=== PATIENT | male | born 2000 | race Caucasian/White ===

== ENCOUNTER 2022-05-06 11:23 | Inpatient (IN) ==
[2022-05-06 12:03] LABS: Basophils # (auto) 0.03 K/uL (0-0.2); Basophils % (auto) 0.4 %; Eosinophils # (auto) 0.06 K/uL (0-0.50); Eosinophils % (auto) 0.7 %; Hematocrit (blood only) 44.9 % (40.1-51.0); Hemoglobin 15.7 g/dl (14.0-18.0); Immature Granulocytes # (auto) 0.04 K/uL (0.00-0.02); Immature Granulocytes % (auto) 0.5 %; Lymphocytes # (auto) 1.16 K/uL (1.2-3.4); Lymphocytes % (auto) 13.8 %; Mean Corpuscular Hemoglobin 28.2 pg (25.0-34.0); Mean Corpuscular Volume 80.6 fL (80.0-100.0); Monocytes # (auto) 1.29 K/uL (0.24-0.82); Monocytes % (auto) 15.4 %; Neutrophils # (auto) 5.81 K/uL (1.4-6.5); Neutrophils % (auto) 69.2 %; Platelet Count 168 K/uL (130-400); RDW Coefficient of Variation 11.8 % (11.5-14.5); RDW Standard Deviation 34.3 fL (36.4-46.3); Red Blood Count 5.57 M/uL (4.63-6.08); White Blood Count 8.39 K/ul (4.8-10.8)
[2022-05-06 12:16] LABS: Partial Thromboplastin Ratio 1.2; Partial Thromboplastin Time 31.8 Seconds (21.0-31.0); Prothrombin Time 10.6 Seconds (9.0-12.0)
--- NOTE | 2022-05-06 12:30 | Emergency Department Note ---
History of Present Illness General Chief complaint: Abnormal Labs/Diagnostic Testing Stated complaint: ABNORMAL EKG Time Seen by Provider: 05/06/22 12:13 Source: patient Mode of arrival: ambulatory Limitations: no limitations History of Present Illness Maximum Pain Intensity: 2 Patient comes in after having episode of chest pain or shortness of breath he has been feeling fine lately and woke up around 7 or 8:00 this morning has some tightness in his chest felt short of breath he took a home COVID test was negati ve he then got very nauseated and lightheaded. He was seen at urgent care and [place] they thought his EKG looked abnormal start him on oxygen and gave him nitroglycerin and he felt better he came here by private vehicle he feels much better at present. No trauma or injury no fever chills no cough no sick contacts. He was somewhat pleuritic he did not feel anxious. He said the pain would go on the right side of his neck at times. It would be better if he would sit upright is worse if he laid on his back or certain movements. No lower extremity pain or swelling. no calf tenderness Allergies Allergy/AdvReac Type Severity Reaction Status Date / Time Penicillins Allergy Hives Verified 05/06/22 11:34 Past Med/Surg History Medical History (Updated 05/06/22 @ 14:42 by Deanna Ledesma PA-C) Alcohol use Marijuana use Tobacco use disorder Surgical History (Updated 05/06/22 @ 14:40 by Deanna Ledesma PA-C) [place] teeth removed Family History (Updated 05/06/22 @ 14:41 by Deanna Ledesma PA-C) Other Diabetes Social History (Updated 05/06/22 @ 14:41 by Deanna Ledesma PA-C) Smoking Status: Current some day smoker Tobacco Type: Cigarettes Hx Alcohol Use: Yes Alcohol type: beer Alcohol Intake Frequency: 4 or More x pe r/Week Alcohol Intake Frequency Comment: 4 beers nightly Hx Substance Use: Yes Prescribed Medications: Marijuana Preferred Language: Occitan Feels Safe at Home: Yes Immunizations: Past medical history denies any significant past medical history. Denies diabetes, cardiac disease, pulmonary disease, hypertension Allergiesno known drug Historyno cardiac disease. Grandmother had a stroke Review of Systems A total of 10 systems reviewed and were otherwise negative Physical Exam Vital Signs Vital Signs - 24 hr 05/06/22 11:34 05/06/22 13:14 Temperature 36.7 C Temperature Source Temporal Artery Scan Pulse Rate 76 68 Pulse Rate from SpO2 Sensor 67 Pulse Rhythm Regular Pulse Strength Normal Respiratory Rate 18 15 Respiratory Effort / Characteristics Non-Labored Spontaneous Respiratory Depth Normal Respiratory Pattern Regular Blood Pressure 115/71 122/66 Blood Pressure Mean 85 84 Blood Pressure Position Sitting Pulse Oximetry 98 98 Oxygen Delivery Method Room Air Sepsis Recent Fever Within 48 Hours No Sepsis New/Unexplained Change in Mental Status No Sepsis Action Taken by Nursing No Action Required General: Well developed well nourished young male who appears in no acute distress, breathing comfortably on room air. Normal speech HEENT: Normal cephalic atraumatic. Pupils are equal round and reactive to light. Extraocular movements are intact. Oropharynx is pink with moist mucous membranes. No swelling of the mouth lips or tongue. Neck: Supple with a midline trachea. No meningeal signs or stiffness, no JVD or bruits. No Stridor. Chest: Clear to auscultation bilaterally. No wheezes or rhonchi. No increased work of breathing. Heart: Regular rate and rhythm without murmurs or gallops. Abdomen: Soft nontender, nondistended without rebound guarding or rigidity. Extremities: No cyanosis clubbing or edema. No calf tenderness or assymetry Spine/Back. Non tender to palpation. No CVA tenderness Skin: Good turgor without rashes. Neurologic exam: Cranial nerves two through 12 are intact. Motor and sensation are intact and symmetrical throughout. Medical Decision Making Differential Diagnosis Acute coronary syndrome, arrhythmia, pneumothorax, PE, anxiety, musculoskeletal, infection, electrolyte or metabolic abnormality Medical Records Attestation: I reviewed the patient's medical records. Home Medications Current Medication List: was personally reviewed by sd Laboratory Data Attestation: I reviewed the patient's lab results. Result diagrams: 05/06/22 11:51 05/06/22 11:51 Lab Results 05/06/22 05/06/22 05/06/22 Range/Units 11:51 11:51 11:51 WBC 8.39 (4.8-10.8) K/ul RBC 5.57 (4.63-6.08) M/uL Hgb 15.7 (14.0-18.0) g/dl Hct 44.9 (40.1-51.0) % MCV 80.6 (80.0-100.0) fL MCH 28.2 (25.0-34.0) pg MCHC 35.0 (32.0-36.0) g/dL RDW Std Deviation 34.3 L (36.4-46.3) fL RDW Coeff of Nena 11.8 (11.5-14.5) % Plt Count 168 (130-400) K/uL MPV 10.0 (9.4-12.4) fL Immature Gran % (Auto) 0.5 % Neut % (Auto) 69.2 % Lymph % (Auto) 13.8 % [place] % (Auto) 15.4 % Eos % (Auto) 0.7 % Baso % (Auto) 0.4 % Neut # (Auto) 5.81 (1.4-6.5) K/uL Lymph # (Auto) 1.16 L (1.2-3.4) K/uL [place] # (Auto) 1.29 H (0.24-0.82) K/uL Eos # (Auto) 0.06 (0-0.50) K/uL Baso # (Auto) 0.03 (0-0.2) K/uL Immature Gran # (Auto) 0.04 H (0.00-0.02) K/uL ESR (0-15) mm/hr PT 10.6 (9.0-12.0) Seconds INR 1.0 (0.9-1.1) APTT 31.8 H (21.0-31.0) Seconds PTT Ratio 1.2 D-Dimer (0-500) ug/L FEU Sodium 136 (136-145) mmol/L Potassium 3.9 (3.5-5.1) mmol/L Chloride 102 (98-107) mmol/L Carbon Dioxide 27 (21-32) mmol/L Anion Gap 7 (3-11) BUN 13 (6-23) mg/dl Creatinine 0.86 (0.6-1.4) mg/dl Est Cr Clr Drug Dosing 148.4 ml/min Est GFR ( Amer) 142.7 ml/min Est GFR (Non-Af Amer) 123.1 ml/min BUN/Creatinine Ratio 15.1 (10-20) Glucose 105 H (70-99(Fasting)) mg/dl Calcium 9.1 (8.5-10.1) mg/dl Total Bilirubin 0.6 (0.2-1.0) mg/dl AST 43 H (13-39) U/L ALT 52 (7-52) U/L Alkaline Phosphatase 83 (34-104) U/L Troponin I High Sens 2290.7 H* (0-20) pg/ml C-Reactive Protein (0-0.5) mg/dl Total Protein 7.4 (6.0-8.3) gm/dl Albumin 4.4 (3.4-5.0) gm/dl Globulin 3.0 (2.5-4.0) gm/dl Albumin/Globulin Ratio 1.5 (0.9-2) SARS-CoV-2, RNA, NAAT (NEGATIVE) 05/06/22 05/06/22 05/06/22 Range/Units 11:51 11:51 11:51 WBC (4.8-10.8) K/ul RBC (4.63-6.08) M/uL Hgb (14.0-18.0) g/dl Hct (40.1-51.0) % MCV (80.0-100.0) fL MCH (25.0-34.0) pg MCHC (32.0-36.0) g/dL RDW Std Deviation (36.4-46.3) fL RDW Coeff of Nena (11.5-14.5) % Plt Count (130-400) K/uL MPV (9.4-12.4) fL Immature Gran % (Auto) % Neut % (Auto) % Lymph % (Auto) % [place] % (Auto) % Eos % (Auto) % Baso % (Auto) % Neut # (Auto) (1.4-6.5) K/uL Lymph # (Auto) (1.2-3.4) K/uL [place] # (Auto) (0.24-0.82) K/uL Eos # (Auto) (0-0.50) K/uL Baso # (Auto) (0-0.2) K/uL Immature Gran # (Auto) (0.00-0.02) K/uL ESR 4 (0-15) mm/hr PT (9.0-12.0) Seconds INR (0.9-1.1) APTT (21.0-31.0) Seconds PTT Ratio D-Dimer < 190 (0-500) ug/L FEU Sodium (136-145) mmol/L Potassium (3.5-5.1) mmol/L Chloride (98-107) mmol/L Carbon Dioxide (21-32) mmol/L Anion Gap (3-11) BUN (6-23) mg/dl Creatinine (0.6-1.4) mg/dl Est Cr Clr Drug Dosing ml/min Est GFR ( Amer) ml/min Est GFR (Non-Af Amer) ml/min BUN/Creatinine Ratio (10-20) Glucose (70-99(Fasting)) mg/dl Calcium (8.5-10.1) mg/dl Total Bilirubin (0.2-1.0) mg/dl AST (13-39) U/L ALT (7-52) U/L Alkaline Phosphatase (34-104) U/L Troponin I High Sens (0-20) pg/ml C-Reactive Protein < 0.50 (0-0.5) mg/dl Total Protein (6.0-8.3) gm/dl Albumin (3.4-5.0) gm/dl Globulin (2.5-4.0) gm/dl Albumin/Globulin Ratio (0.9-2) SARS-CoV-2, RNA, NAAT (NEGATIVE) 05/06/22 Range/Units 13:59 WBC (4.8-10.8) K/ul RBC (4.63-6.08) M/uL Hgb (14.0-18.0) g/dl Hct (40.1-51.0) % MCV (80.0-100.0) fL MCH (25.0-34.0) pg MCHC (32.0-36.0) g/dL RDW Std Deviation (36.4-46.3) fL RDW Coeff of Nena (11.5-14.5) % Plt Count (130-400) K/uL MPV (9.4-12.4) fL Immature Gran % (Auto) % Neut % (Auto) % Lymph % (Auto) % [place] % (Auto) % Eos % (Auto) % Baso % (Auto) % Neut # (Auto) (1.4-6.5) K/uL Lymph # (Auto) (1.2-3.4) K/uL [place] # (Auto) (0.24-0.82) K/uL Eos # (Auto) (0-0.50) K/uL Baso # (Auto) (0-0.2) K/uL Immature Gran # (Auto) (0.00-0.02) K/uL ESR (0-15) mm/hr PT (9.0-12.0) Seconds INR (0.9-1.1) APTT (21.0-31.0) Seconds PTT Ratio D-Dimer (0-500) ug/L FEU Sodium (136-145) mmol/L Potassium (3.5-5.1) mmol/L Chloride (98-107) mmol/L Carbon Dioxide (21-32) mmol/L Anion Gap (3-11) BUN (6-23) mg/dl Creatinine (0.6-1.4) mg/dl Est Cr Clr Drug Dosing ml/min Est GFR ( Amer) ml/min Est GFR (Non-Af Amer) ml/min BUN/Creatinine Ratio (10-20) Glucose (70-99(Fasting)) mg/dl Calcium (8.5-10.1) mg/dl Total Bilirubin (0.2-1.0) mg/dl AST (13-39) U/L ALT (7-52) U/L Alkaline Phosphatase (34-104) U/L Troponin I High Sens (0-20) pg/ml C-Reactive Protein (0-0.5) mg/dl Total Protein (6.0-8.3) gm/dl Albumin (3.4-5.0) gm/dl Globulin (2.5-4.0) gm/dl Albumin/Globulin Ratio (0.9-2) SARS-CoV-2, RNA, NAAT NEGATIVE (NEGATIVE) Imaging Data Attestation: I personally reviewed and interpreted this imaging study as follows: My Impression: X-ray of chestno acute infiltrate, failure, pneumothorax seen Radiologist's Impression: Chest X-Ray 05/06/22 12:30 XR chest 1V portable HISTORY: 21 years-old Male chest pain acute atypical chest pain COMPARISON: None TECHNIQUE: Portable AP view of the chest FINDINGS: Cardiomediastinal and hilar silhouettes are within normal limits. No pneumothorax, pleural effusion, airspace consolidation or overt pulmonary edema. Bones of the chest appear grossly intact. IMPRESSION: No acute process. ACT 112: Negative or not required by law. The above report was generated using voice recognition software. It may contain grammatical, syntax or spelling errors. Electronically signed by: Cuco Belle M.D. 05/06/2022 1:02 PM ECG Data Attestation: I personally reviewed and interpreted this ECG as follows: Indication: + chest pain, + nausea and + SOB/dyspnea Rate (beats per minute): 69 Rhythm: + normal sinus ECG Intervals/blocks: + Normal QRS, + Normal QT and + Normal NC ECG Hector: + Normal ECG ST segments: + repolarization abnormalities (He does have some mild early repolarization changes) ECG Findings: no PACs or no PVCs Comparison ECG Date: no prior available Additional Comments: .EKG #2: Has rhythm with sinus arrhythmia rate of 68 no acute ischemic changes or ectopy. There are some early repolarization changes. No change compared to EKG 1 MDM Narrative This Patient comes in as described above he had episode chest pain shortness of breath was seen in urgent care and sent here. He is feeling better he did receive aspirin 324 mgand nitro prior to arrival. He has stable vital signs. His lungs are clear. He was placed on a cardiac nurse EKG multiple blood testing was obtained and chest x-ray. IV access were established and he was reassessed frequently. EKG does not suggest acute ischemic event however his troponin came back significantly elevated. I did a second EKG is no change compared to EKG #1 and the patient is very comfortable at present. Chest x-ray does not show congestive heart failure,pneumonia, or pneumothorax. He has no fever or white count to suggest infection. His D-dimer is negative and in the low pretest probability makes PE highly unlikely. I did discuss the case with Dr. Vides, who is on-call for [facility] cardiology. He wanted get a stat echo which I ordered and have the admitting team to see the patient as well for admission. Most likely the patient has pericarditis/myocarditis but will need to be admitted for further treatment and evaluation. No recent COVID-like symptoms and has had no recent COVID-vaccine. His inflammatory markers with sed rate and CRP are thus far unremarkable. [facility]. COVID testing was negative Continuous cardiac monitoring: Orders placed in EMR for continuous cardiac monitoring. Upon my interpretation the patient was noted to be in normal sinus rhythm with a rate of 70 Impression & Plan Chest pain, Elevated troponin I level, Myocarditis, Lab test negative for COVID-19 virus Discharge Plan Visit Data Chief Complaint: Abnormal Labs/Diagnostic Testing Stated Complaint: ABNORMAL EKG ED Provider: Sal Gaviria Discharge Problem: Chest pain, Elevated troponin I level, Myocarditis, Lab test negative for COVI D-19 virus Forms Stand Alone Forms: My [facility] Referrals Referrals: PCP,NO [Primary Care Provider] - : Chest pain Qualifiers: Chest pain type: unspecified Qualified Code(s): R07.9 - Chest pain, unspecified Myocarditis Qualifiers: Myocarditis type: unspecified Chronicity: acute Qualified Code(s): I40.9 - Acute myocarditis, unspecified
[2022-05-06 12:32] LABS: Troponin I High Sensitivity 2290.7 pg/ml (0-20)
[2022-05-06 12:42] LABS: Albumin Globulin Ratio 1.5 (0.9-2); Albumin Level 4.4 gm/dl (3.4-5.0); BUN Creatinine Ratio 15.1 (10-20); Bilirubin,Total 0.6 mg/dl (0.2-1.0); Calcium 9.1 mg/dl (8.5-10.1); Creatinine Clr Calc Pharmacy 148.4 ml/min; Est GFR (African American) 142.7 ml/min; Est GFR (Non-African American) 123.1 ml/min; Potassium 3.9 mmol/L (3.5-5.1); Total Protein 7.4 gm/dl (6.0-8.3)
[2022-05-06 12:51] LABS: D Dimer < 190 ug/L FEU (0-500)
--- NOTE | 2022-05-06 13:04 | XRay Report ---
XR chest 1V portable HISTORY: 21 years-old Male chest pain acute atypical chest pain COMPARISON: None TECHNIQUE: Portable AP view of the chest FINDINGS: Cardiomediastinal and hilar silhouettes are within normal limits. No pneumothorax, pleural effusion, airspace consolidation or overt pulmonary edema. Bones of the chest appear grossly intact. IMPRESSION: No acute process. ACT 112: Negative or not required by law. The above report was generated using voice recognition software. It may contain grammatical, syntax o r spelling errors. Electronically signed by: Cuco Belle M.D. 05/06/2022 1:02 PM
--- NOTE | 2022-05-06 14:17 | History & Physical Report ---
Date of Service May 06, 2022 Assessment & Plan (1) Chest pain: (2) Elevated troponin I level: Plan: This is a 21-year-old male with tobacco and marijuana use who presents with sudden onset shortness of breath and chest heaviness this morning. Sudden onset SOB while lying flat with associated chest heaviness Urgent care ECG reportedly abnormal (unable to view), given asa and ntg with resolution of sx Initial HS troponin 2290.7. Repeat pending Reports URI 1 month prior. Covid negative. Denies cocaine use, utox pending. D- dimer WNL. ESR, CRP, CK, TSH all pending Repeat ECG with NSR, no acute ST changes. CXR without abnormality Ddx: ACS (although current cp free) vs. monisha/pericarditis in setting of recent viral infection Echo obtained at bedside while patient in ED Cardiology consulted Keep NPO for now, monitor on telemetry, trend troponin (3) Alcohol use: Plan: Endorses 4 beers nightly. Withdrawal precautions ordered, PRN ativan PRN (4) Marijuana use: (5) Tobacco use disorder: Plan: Recommend cessation Code status: FULL PCP: no PCP Dispo: Admitted to PCU Patient seen in collaboration with Dr. Spaulding. Please see addendum. History of Present Illness Chief Complaint: Shortness of breath, chest heaviness Primary Care Provider: NO PCP This is a 21-year-old male with tobacco and marijuana use who presents with sudden onset shortness of breath and chest heaviness this morning. Patient woke up today having difficulty breathing lying flat that improved when he sat up. Endorses associated chest heaviness that felt like a "weight across my chest" and a feeling like he could not get a full breath in. Also had some pain in lateral right neck as well as some nausea. Girlfriend notes he was pale as well. Went to urgent care for further evaluation and EKG was reportedly abnormal. Patient given nitro and aspirin and came to ED by private car. Pain has almost completely resolved since medications. Still has mild chest heaviness with deep inspiration but none if he is breathing normally. Denies any similar symptoms in the past. Did have a bout of food poisoning a few days ago after eating a gas station sandwich with nausea and vomiting that resolved after 24 hours. Then attended a friend's birthday constitution party 2 nights ago and drank a significant amount of alcohol, feeling hung over yesterday. No other abnormal symptoms yesterday besides feeling fatigues and nauseous. Endorses smoking cigarettes most days as well as frequently smoking marijuana. Drinks 4 beers a day. Denies cocaine or IV drug use. Had a cold about a month ago that is since resolved. No recent COVID infection. No rashes, no bites although he does have pet rats. No known tick exposure or bites. Currently feeling comfortable and asymptomatic at rest. No fever, chills, congestion, palpitations, wheezing, N/V/D, abdominal pain or dysuria. Does not take any schedule home medications. Allergies Allergy/AdvReac Type Severity Reaction Status Date / Time Penicillins Allergy Hives Verified 05/06/22 11:34 Past Med/Surg History Medical History Alcohol use Marijuana use Tobacco use disorder Surgical History [place] teeth removed Family History Other Diabetes Social History Smoking Status: Light tobacco smoker Tobacco Type: Cigarettes Hx Alcohol Use: Yes Alcohol type: beer Alcohol Intake Frequency: 4 or More x per/Week Alcohol Intake Frequency Comment: 4 beers nightly Preferred Language: Georgian Communication Ability: Effective Pulp Piler Required: No Beliefs That Will Affect Care: None Current Living Situation: Alone Feels Safe at Home: Yes Safety Concerns: Feels Safe At This Time Assistive Devices: None Review of Systems Review of Systems: At least ten systems reviewed and negative except as noted in the HPI. Physical Exam Physical Exam: General Appearance: WD/WN, vitals as above, NAD, sitting up in bed, pleasant, conversing easily Head: normocephalic, atraumatic Eyes: normal inspection, PERRL, conjunctivae normal, anicteric sclerae ENT: external ear and nose normal, oropharynx normal Neck: normal visual inspection, trachea midline, no thyromegaly Respiratory: normal respiratory effort, lungs clear to auscultation, no wheeze, rales, rhonchi. No accessory muscle use Cardiovascular: regular rate, rhythm, no murmur, normal peripheral pulses, no BLE edema. Vessels: no JVD Chest: normal inspection of chest Abdomen/GI: normal bowel sounds, soft, nontender, no hepatosplenomegaly Extremities/Musculoskeletal: no cyanosis or clubbing, extremities motor strength 5/5 Neurologic: PERRL, EOMI, accommodation nl, no face palsy, no dysarthria, CN's II-XI intact bilaterally and moves all extremities Psychiatric: A+Ox3, euthymic affect Skin: no rashes, normal color, warm/dry Results & Data Results & Data ([facility]) Vital Signs (Past 12 Hours) Vital Signs Temp Pulse Resp BP Pulse Ox O2 Del Method 05/06/22 13:14 68 15 122/66 98 05/06/22 11:34 36.7 C 76 18 115/71 98 Room Air Laboratory Results Short CBC 05/06/22 Range/Units 11:51 WBC 8.39 (4.8-10.8) K/ul Hgb 15.7 (14.0-18.0) g/dl Hct 44.9 (40.1-51.0) % Plt Count 168 (130-400) K/uL BMP 05/06/22 11:51 Sodium 136 Potassium 3.9 Chloride 102 Carbon Dioxide 27 BUN 13 Creatinine 0.86 Glucose 105 H Calcium 9.1 Liver Function 05/06/22 Range/Units 11:51 Total Bilirubin 0.6 (0.2-1.0) mg/dl AST 43 H (13-39) U/L ALT 52 (7-52) U/L Alkaline Phosphatase 83 (34-104) U/L Albumin 4.4 (3.4-5.0) gm/dl Diagnostic Findings Chest X-Ray 05/06/22 12:30 XR chest 1V portable HISTORY: 21 years-old Male chest pain acute atypical chest pain COMPARISON: None TECHNIQUE: Portable AP view of the chest FINDINGS: Cardiomediastinal and hilar silhouettes are within normal limits. No pneumothorax, pleural effusion, airspace consolidation or overt pulmonary edema. Bones of the chest appear grossly intact. IMPRESSION: No acute process. ACT 112: Negative or not required by law. The above report was generated using voice recognition software. It may contain grammatical, syntax or spelling errors. Electronically signed by: Cuco Belle M.D. 05/06/2022 1:02 PM ECG Additional Comments: NSR Supervising Physician Co-Signing Physician Notes I have seen and examined the patient and have discussed the case with the provider above. I agree with the assessment and plan as stated with the following exceptions. 21 yo M presenting with chest pain that is acute following a URI a couple of weeks ago and a constitution party two nights ago. No associated palpitations. Uses marijuana but not other street drugs per his report. Chest pain improved at urgent care center after aspirin and nitro. No known family history. Normal echocardiogram today. He has an elevated troponin enzyme to 2290-->3136-->3385. Physical exam is unremarkable with a normal cardiac exam. CK 230. Cont IVF and trended cardiac enzymes overnight, while monitoring on telemetry. Monitor for reappearance of symptoms. Defer to cardiology for need to stress him in the morning. DO Jasson (1) Chest pain Chest pain type: unspecified Qualified Code(s): R07.9 - Chest pain, unspecified
[2022-05-06] MEDS ORDERED: SODIUM CHLORIDE 0.9% 1000ML 1,000 ML IV SCH (15:47)
[2022-05-06] MEDS ORDERED: ONDANSETRON INJ 2 MG/ML 2 ML VIAL IV PRN (15:47)
[2022-05-06] MEDS ORDERED: ACETAMINOPHEN 325 MG TAB PO PRN (15:47)
[2022-05-06] MEDS ORDERED: LORazepam 1 MG TAB PO PRN (15:47)
[2022-05-06] MEDS ORDERED: POLYETHYLENE (MIRALAX) 17 GM PACK PO PRN (15:47)
--- NOTE | 2022-05-06 15:49 | Cardiology Consultation ---
Date of Consultation May 06, 2022 Assessment & Plan (1) Chest pain: (2) Elevated troponin I level: (3) Tobacco use disorder: (4) Marijuana use: Plan The patient's echocardiogram and EKGs are unremarkable. He has a borderline elevation in his first cardiac troponin. I think the patient should have additional cardiac troponins drawn and be kept on telemetry. We will have further recommendations following the above. History of Present Illness History of Present Illness This is a 21-year-old male patient with no prior history of heart disease. He occasionally smokes cigarettes and marijuana. No history of diabetes or hypertension. No strong family history of early heart disease. He awoke this morning and had a severe heaviness on his chest and pain that would not allow him to take a deep breath. After several hours he decided to go to an urgent care where they evaluated him and obtained an EKG. They told him that he should be evaluated in the emergency department. Prior to him leaving they gave him a sublingual nitroglycerin which after time seem to improve his discomfort and he was pain-free by the time he reached [place]. During my interview, he was in no acute distress and had no discomfort. EKG reveals a sinus rhythm with early repolarization. His high-sensitivity troponin is marginally elevated. He had an echocardiogram done earlier today which I reviewed. He has normal left and right ventricular systolic function. Normal cardiac chamber sizes. No significant valvular pathology. A trivial amount of pericardial fluid anteriorly. 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 All other 10 point review of systems are negative. Physical Exam Physical Exam: General: no acute distress and stated age Head: normocephalic, no masses, lesions, tenderness or abnormalities Eyes: conjunctiva are pink and non-injected, sclera clear Neck: supple, no adenopathy, no bruits, normal jugular venous pulse, no hepatojugular reflux Chest: normal shape and normal respiratory effort Lungs: clear to auscultation and percussion Cardiac Exam: - regular rate & rhythm, no murmurs gallops or rubs - normal S1, normal S2 Pulses: 2(+) throughout Abdomen: abdomen soft, non-tender, no abnormal masses and no hepatosplenomegaly Musculoskeletal: no gait disturbance, no joint inflammation, no deforming arthritis Extremities: no edema and no cyanosis Neuro: grossly normal exam Results & Data ([facility]) Vital Signs (Past 12 Hours) Vital Signs Temp Pulse Resp BP Pulse Ox O2 Del Method 05/06/22 13:14 68 15 122/66 98 05/06/22 11:34 36.7 C 76 18 115/71 98 Room Air Laboratory Results Laboratory Results - last 24 hr 05/06/22 05/06/22 05/06/22 11:51 11:51 11:51 WBC 8.39 RBC 5.57 Hgb 15.7 Hct 44.9 MCV 80.6 MCH 28.2 MCHC 35.0 RDW Std Deviation 34.3 L RDW Coeff of Nena 11.8 Plt Count 168 MPV 10.0 Immature Gran % (Auto) 0.5 Neut % (Auto) 69.2 Lymph % (Auto) 13.8 Dukes % (Auto) 15.4 Eos % (Auto) 0.7 Baso % (Auto) 0.4 Neut # (Auto) 5.81 Lymph # (Auto) 1.16 L Dukes # (Auto) 1.29 H Eos # (Auto) 0.06 Baso # (Auto) 0.03 Immature Gran # (Auto) 0.04 H ESR PT 10.6 INR 1.0 APTT 31.8 H PTT Ratio 1.2 D-Dimer Sodium 136 Potassium 3.9 Chloride 102 Carbon Dioxide 27 Anion Gap 7 BUN 13 Creatinine 0.86 Est Cr Clr Drug Dosing 148.4 Est GFR ( Amer) 142.7 Est GFR (Non-Af Amer) 123.1 BUN/Creatinine Ratio 15.1 Glucose 105 H Calcium 9.1 Total Bilirubin 0.6 AST 43 H ALT 52 Alkaline Phosphatase 83 Total Creatine Kinase Troponin I High Sens 2290.7 H* C-Reactive Protein Total Protein 7.4 Albumin 4.4 Globulin 3.0 Albumin/Globulin Ratio 1.5 TSH SARS-CoV-2, RNA, NAAT 05/06/22 05/06/22 05/06/22 11:51 11:51 11:51 WBC RBC Hgb Hct MCV MCH MCHC RDW Std Deviation RDW Coeff of Nena Plt Count MPV Immature Gran % (Auto) Neut % (Auto) Lymph % (Auto) Dukes % (Auto) Eos % (Auto) Baso % (Auto) Neut # (Auto) Lymph # (Auto) Dukes # (Auto) Eos # (Auto) Baso # (Auto) Immature Gran # (Auto) ESR 4 PT INR APTT PTT Ratio D-Dimer < 190 Sodium Potassium Chloride Carbon Dioxide Anion Gap BUN Creatinine Est Cr Clr Drug Dosing Est GFR ( Amer) Est GFR (Non-Af Amer) BUN/Creatinine Ratio Glucose Calcium Total Bilirubin AST ALT Alkaline Phosphatase Total Creatine Kinase Troponin I High Sens C-Reactive Protein < 0.50 Total Protein Albumin Globulin Albumin/Globulin Ratio [facility] SARS-CoV-2, RNA, NAAT 05/06/22 05/06/22 05/06/22 11:51 13:59 15:30 WBC RBC Hgb Hct MCV MCH MCHC RDW Std Deviation RDW Coeff of Nena Plt Count MPV Immature Gran % (Auto) Neut % (Auto) Lymph % (Auto) Dukes % (Auto) Eos % (Auto) Baso % (Auto) Neut # (Auto) Lymph # (Auto) Dukes # (Auto) Eos # (Auto) Baso # (Auto) Immature Gran # (Auto) ESR PT INR APTT PTT Ratio D-Dimer Sodium Potassium Chloride Carbon Dioxide Anion Gap BUN Creatinine Est Cr Clr Drug Dosing Est GFR ( Amer) Est GFR (Non-Af Amer) BUN/Creatinine Ratio Glucose Calcium Total Bilirubin AST ALT Alkaline Phosphatase Total Creatine Kinase Pending Troponin I High Sens Pending C-Reactive Protein Total Protein Albumin Globulin Albumin/Globulin Ratio TSH 2.075 SARS-CoV-2, RNA, NAAT NEGATIVE (1) Chest pain Chest pain type: unspecified Qualified Code(s): R07.9 - Chest pain, unspecified
[2022-05-06 16:26] LABS: Troponin I High Sensitivity 3136.6 pg/ml (0-20)
[2022-05-06 23:48] LABS: Amphetamines+Metham, Urine Neg (Neg); Barbiturates, Urine Neg (Neg); Benzodiazepine, Urine Neg (Neg); Cocaine, Urine Neg (Neg); MDMA (Ecstacy), Urine Neg (Neg); Methadone, Urine Neg (Neg); Opiate, Urine Neg (Neg); Phencyclidine, Urine Neg (Neg)
--- NOTE | 2022-05-07 11:12 | Cardiology Progress Note ---
Date of Service May 07, 2022 Assessment & Plan (1) Chest pain: (2) Elevated troponin I level: (3) Tobacco use disorder: (4) Marijuana use: Plan Although the patient had atypical chest pain and no symptoms that would suggest myocarditis or pericarditis. No recent viral illnesses. No fever or other illness. He does have elevated cardiac troponins. His resting echocardiogram was unremarkable. There was a trivial amount of pericardial fluid anteriorly and no other significant findings. EKG shows diffuse ST abnormalities which would be consistent with early repolarization. I think the best approach here would be to exercise the patient on a treadmill and perform an exercise stress echocardiogram. If that study is completely unremarkable then I think it would be okay to discharge the patient with outpatient follow-up. If the stress test is abnormal or reproduces his chest pain then we would have to proceed with a cardiac catheterization and other work-up. Admission and Anticipated Discharge Date Admission Date: May 06, 2022 Subjective This is a 21-year-old male patient who presented with atypical chest pain which resolved by the time he reached the hospital. He has been pain-free ever since admission. No shortness of breath. Review of Systems Review of Systems: Review of Systems: See HPI for pertinent positives. All other 10 point review of systems are negative. Physical Exam Physical Exam: General: no acute distress and stated age Head: normocephalic, no masses, lesions, tenderness or abnormalities Eyes: conjunctiva are pink and non-injected, sclera clear Neck: supple, no adenopathy, no bruits, normal jugular venous pulse, no hepatojugular reflux Chest: normal shape and normal respiratory effort Lungs: clear to auscultation and percussion Cardiac Exam: - regular rate & rhythm, no murmurs gallops or rubs - normal S1, normal S2 Pulses: 2(+) throughout Abdomen: abdomen soft, non-tender, no abnormal masses and no hepatosplenomegaly Musculoskeletal: no gait disturbance, no joint inflammation, no deforming arthritis Extremities: no edema and no cyanosis Neuro: grossly normal exam Results & Data ([facility]) Vital Signs (Past 12 Hours) Vital Signs Temp Pulse Pulse Resp BP Pulse Ox O2 Del Method 05/07/22 07:54 55 L 05/07/22 07:53 36.8 C 74 18 121/64 96 05/07/22 03:06 37.1 C 64 14 114/61 97 Room Air Laboratory Results Laboratory Results - last 24 hr 05/06/22 05/06/22 05/06/22 11:51 11:51 11:51 WBC 8.39 RBC 5.57 Hgb 15.7 Hct 44.9 MCV 80.6 MCH 28.2 MCHC 35.0 RDW Std Deviation 34.3 L RDW Coeff of Nena 11.8 Plt Count 168 MPV 10.0 Immature Gran % (Auto) 0.5 Neut % (Auto) 69.2 Lymph % (Auto) 13.8 [place] % (Auto) 15.4 Eos % (Auto) 0.7 Baso % (Auto) 0.4 Neut # (Auto) 5.81 Lymph # (Auto) 1.16 L [place] # (Auto) 1.29 H Eos # (Auto) 0.06 Baso # (Auto) 0.03 Immature Gran # (Auto) 0.04 H ESR PT 10.6 INR 1.0 APTT 31.8 H PTT Ratio 1.2 D-Dimer Sodium 136 Potassium 3.9 Chloride 102 Carbon Dioxide 27 Anion Gap 7 BUN 13 Creatinine 0.86 Est Cr Clr Drug Dosing 148.4 Est GFR ( Amer) 142.7 Est GFR (Non-Af Amer) 123.1 BUN/Creatinine Ratio 15.1 Glucose 105 H Calcium 9.1 Total Bilirubin 0.6 AST 43 H ALT 52 Alkaline Phosphatase 83 Total Creatine Kinase Troponin I High Sens 2290.7 H* C-Reactive Protein Total Protein 7.4 Albumin 4.4 Globulin 3.0 Albumin/Globulin Ratio 1.5 TSH Urine Opiates Screen Ur Methadone, Qual Urine Barbiturates Ur Phencyclidine (PCP) U Amphetamin/Meth Scrn MDMA (Ecstasy) Screen U Benzodiazepines Scrn Ur Cocaine Metabolite U Marijuana (THC) Screen U Marijuana THC Carboxy Drug Screen Comment SARS-CoV-2, RNA, NAAT 05/06/22 05/06/22 05/06/22 11:51 11:51 11:51 WBC RBC Hgb Hct MCV MCH MCHC RDW Std Deviation RDW Coeff of Nena Plt Count MPV Immature Gran % (Auto) Neut % (Auto) Lymph % (Auto) [place] % (Auto) Eos % (Auto) Baso % (Auto) Neut # (Auto) Lymph # (Auto) [place] # (Auto) Eos # (Auto) Baso # (Auto) Immature Gran # (Auto) ESR 4 PT INR APTT PTT Ratio D-Dimer < 190 Sodium Potassium Chloride Carbon Dioxide Anion Gap BUN Creatinine Est Cr Clr Drug Dosing Est GFR ( Amer) Est GFR (Non-Af Amer) BUN/Creatinine Ratio Glucose Calcium Total Bilirubin AST ALT Alkaline Phosphatase Total Creatine Kinase Troponin I High Sens C-Reactive Protein < 0.50 Total Protein Albumin Globulin Albumin/Globulin Ratio TSH Urine Opiates Screen Ur Methadone, Qual Urine Barbiturates Ur Phencyclidine (PCP) U Amphetamin/Meth Scrn MDMA (Ecstasy) Screen U Benzodiazepines Scrn Ur Cocaine Metabolite U Marijuana (THC) Screen U Marijuana THC Carboxy Drug Screen Comment SARS-CoV-2, RNA, NAAT 05/06/22 05/06/22 05/06/22 11:51 13:59 15:30 WBC RBC Hgb Hct MCV MCH MCHC RDW Std Deviation RDW Coeff of Nena Plt Count MPV Immature Gran % (Auto) Neut % (Auto) Lymph % (Auto) [place] % (Auto) Eos % (Auto) Baso % (Auto) Neut # (Auto) Lymph # (Auto) [place] # (Auto) Eos # (Auto) Baso # (Auto) Immature Gran # (Auto) ESR PT INR APTT PTT Ratio D-Dimer Sodium Potassium Chloride Carbon Dioxide Anion Gap BUN Creatinine Est Cr Clr Drug Dosing Est GFR ( Amer) Est GFR (Non-Af Amer) BUN/Creatinine Ratio Glucose Calcium Total Bilirubin AST ALT Alkaline Phosphatase Total Creatine Kinase 264 H Troponin I High Sens 3136.6 H* D C-Reactive Protein Total Protein Albumin Globulin Albumin/Globulin Ratio TSH 2.075 Urine Opiates Screen Ur Methadone, Qual Urine Barbiturates Ur Phencyclidine (PCP) U Amphetamin/Meth Scrn MDMA (Ecstasy) Screen U Benzodiazepines Scrn Ur Cocaine Metabolite U Marijuana (THC) Screen U Marijuana THC Carboxy Drug Screen Comment SARS-CoV-2, RNA, NAAT NEGATIVE 05/06/22 05/06/22 05/06/22 19:49 23:00 23:00 WBC RBC Hgb Hct MCV MCH MCHC RDW Std Deviation RDW Coeff of Nena Plt Count MPV Immature Gran % (Auto) Neut % (Auto) Lymph % (Auto) [place] % (Auto) Eos % (Auto) Baso % (Auto) Neut # (Auto) Lymph # (Auto) [place] # (Auto) Eos # (Auto) Baso # (Auto) Immature Gran # (Auto) ESR PT INR APTT PTT Ratio D-Dimer Sodium Potassium Chloride Carbon Dioxide Anion Gap BUN Creatinine Est Cr Clr Drug Dosing Est GFR ( Amer) Est GFR (Non-Af Amer) BUN/Creatinine Ratio Glucose Calcium Total Bilirubin AST ALT Alkaline Phosphatase Total Creatine Kinase Troponin I High Sens 3384.9 H* C-Reactive Protein Total Protein Albumin Globulin Albumin/Globulin Ratio TSH Urine Opiates Screen Neg Ur Methadone, Qual Neg Urine Barbiturates Neg Ur Phencyclidine (PCP) Neg U Amphetamin/Meth Scrn Neg MDMA (Ecstasy) Screen Neg U Benzodiazepines Scrn Neg Ur Cocaine Metabolite Neg U Marijuana (THC) Screen Pos H U Marijuana THC Carboxy Pending Drug Screen Comment Pending SARS-CoV-2, RNA, NAAT 05/07/22 10:30 WBC RBC Hgb Hct MCV MCH MCHC RDW Std Deviation RDW Coeff of Nena Plt Count MPV Immature Gran % (Auto) Neut % (Auto) Lymph % (Auto) [place] % (Auto) Eos % (Auto) Baso % (Auto) Neut # (Auto) Lymph # (Auto) [place] # (Auto) Eos # (Auto) Baso # (Auto) Immature Gran # (Auto) ESR PT INR APTT PTT Ratio D-Dimer Sodium Potassium Chloride Carbon Dioxide Anion Gap BUN Creatinine Est Cr Clr Drug Dosing Est GFR ( Amer) Est GFR (Non-Af Amer) BUN/Creatinine Ratio Glucose Calcium Total Bilirubin AST ALT Alkaline Phosphatase Total Creatine Kinase Pending Troponin I High Sens Pending C-Reactive Protein Total Protein Albumin Globulin Albumin/Globulin Ratio TSH Urine Opiates Screen Ur Methadone, Qual Urine Barbiturates Ur Phencyclidine (PCP) U Amphetamin/Meth Scrn MDMA (Ecstasy) Screen U Benzodiazepines Scrn Ur Cocaine Metabolite U Marijuana (THC) Screen U Marijuana THC Carboxy Drug Screen Comment SARS-CoV-2, RNA, NAAT Medications Administered Current Inpatient Medications Acetaminophen (Acetaminophen 325 Mg Tab) 650 mg PO Q4H PRN PRN Reason: Pain or Fever Stop: 06/05/22 15:46 Lorazepam (Lorazepam 1 Mg Tab) 1 mg PO ONE PRN; Protocol PRN Reason: EtoH Withdrawal AWSS 6,7,8,9,1 Ondansetron HCl (Ondansetron Inj 2 Mg/Ml 2 Ml Vial) 4 mg IV Q6H PRN PRN Reason: Nausea Stop: 06/05/22 15:46 Polyethylene Glycol (Polyethylene (Miralax) 17 Gm Pack) 17 gm PO DAILY PRN PRN Reason: Constipation Stop: 06/05/22 15:46 (1) Chest pain Chest pain type: unspecified Qualified Code(s): R07.9 - Chest pain, unspecified
[2022-05-07 11:31] LABS: Troponin I High Sensitivity 2440.8 pg/ml (0-20)
--- NOTE | 2022-05-07 13:38 | Hospitalist Progress Note ---
Date of Service May 07, 2022 Assessment & Plan (1) Chest pain: (2) Elevated troponin I level: Plan: This is a 21-year-old male with tobacco and marijuana use who presents with sudden onset shortness of breath and chest heaviness this morning. Sudden onset SOB while lying flat with associated chest heaviness Urgent care ECG reportedly abnormal (unable to view), given asa and ntg with resolution of sx Initial HS troponin 2290.7. Repeat pending Reports URI 1 month prior. Covid negative. Denies cocaine use, utox pending. D- dimer WNL. ESR, CRP, CK, TSH all pending Repeat ECG with NSR, no acute ST changes. CXR without abnormality Ddx: ACS (although current cp free) vs. monisha/pericarditis in setting of recent viral infection Echo obtained at bedside while patient in ED Cardiology consulted Keep NPO for now, monitor on telemetry, trend troponin (3) Alcohol use: Plan: Endorses 4 beers nightly. Withdrawal precautions ordered, PRN ativan PRN (4) Marijuana use: (5) Tobacco use disorder: Plan: Recommend cessation Code status: FULL PCP: no PCP Dispo: Admitted to PCU Patient seen in collaboration with Dr. Spaulding. Please see addendum. Admission and Anticipated Discharge Date Admission Date: May 06, 2022 Subjective Pt was seen Results & Data Results & Data ([facility]) Vital Signs (Past 12 Hours) Vital Signs Temp Pulse Pulse Resp BP Pulse Ox O2 Del Method 05/07/22 07:54 55 L 05/07/22 07:53 36.8 C 74 18 121/64 96 05/07/22 03:06 37.1 C 64 14 114/61 97 Room Air (1) Chest pain Chest pain type: unspecified Qualified Code(s): R07.9 - Chest pain, unspecified
--- NOTE | 2022-05-07 14:28 | Discharge Summary ---
Date of Service May 07, 2022 Admission HPI Per Admitting Provider This is a 21-year-old male with tobacco and marijuana use who presents with sudden onset shortness of breath and chest heaviness this morning. Patient woke up today having difficulty breathing lying flat that improved when he sat up. Endorses associated chest heaviness that felt like a "weight across my chest" and a feeling like he could not get a full breath in. Also had some pain in lateral right neck as well as some nausea. Girlfriend notes he was pale as well. Went to urgent care for further evaluation and EKG was reportedly abnormal. Patient given nitro and aspirin and came to ED by private car. Pain has almost completely resolved since medications. Still has mild chest heaviness with deep inspiration but none if he is breathing normally. Denies any similar symptoms in the past. Did have a bout of food poisoning a few days ago after eating a gas station sandwich with nausea and vomiting that resolved after 24 hours. Then attended a friend's birthday democrat 2 nights ago and drank a significant amount of alcohol, feeling hung over yesterday. No other abnormal symptoms yesterday besides feeling fatigues and nauseous. Endorses smoking cigarettes most days as well as frequently smoking marijuana. Drinks 4 beers a day. Denies cocaine or IV drug use. Had a cold about a month ago that is since resolved. No recent COVID infection. No rashes, no bites although he does have pet rats. No known tick exposure or bites. Currently feeling comfortable and asymptomatic at rest. No fever, chills, congestion, palpitations, wheezing, N/V/D, abdominal pain or dysuria. Does not take any schedule home medications. Admission Exam Per Admitting Provider General Appearance:WD/WN, vitals as above, NAD, sitting up in bed, pleasant, conversing easily Head: normocephalic, atraumatic Eyes:normal inspection, PERRL, conjunctivae normal, anicteric sclerae ENT: external ear and nose normal, oropharynx normal Neck: normal visual inspection, trachea midline, no thyromegaly Respiratory:normal respiratory effort, lungs clear to auscultation, no wheeze, rales, rhonchi. No accessory muscle use Cardiovascular: regular rate, rhythm, no murmur, normal peripheral pulses, no BLE edema. Vessels: no JVD Chest: normal inspection of chest Abdomen/GI: normal bowel sounds, soft, nontender, no hepatosplenomegaly Extremities/Musculoskeletal: no cyanosis or clubbing, extremities motor strength 5/5 Neurologic: PERRL, EOMI, accommodation nl, no face palsy, no dysarthria, CN's II-XI intact bilaterally and moves all extremities Psychiatric:A+Ox3, euthymic affect Skin: no rashes, normal color, warm/dry Principal Diagnosis (1) Chest pain: (2) Elevated troponin I level: (3) Tobacco use disorder: (4) Marijuana use: Discharge Exam General- No acute distress Head- atraumatic Eyes- PERRL, EOMI, ENT- oropharynx clear Neck- supple, no JVD Lungs- clear to auscultation Heart- regular rhythm; no murmur Abdomen- normal bowel sounds, soft, nontender Extremities- no calf tenderness Neuro- alert, oriented x 3; PERRL, EOMI; no facial palsy; no dysarthria Skin- warm & dry Discharge Data Allergies Allergy/AdvReac Type Severity Reaction Status Date / Time Penicillins Allergy Hives Verified 05/06/22 11:34 Consultations 05/06/22 13:23 ED Decision to Admit Stat 05/06/22 15:14 Consult Cardiology Routine Ordered Studies XR chest 1V portable HISTORY: 21 years-old Male chest pain acute atypical chest pain COMPARISON: None TECHNIQUE: Portable AP view of the chest FINDINGS: Cardiomediastinal and hilar silhouettes are within normal limits. No pneumothorax, pleural effusion, airspace consolidation or overt pulmonary edema. Bones of the chest appear grossly intact. IMPRESSION: No acute process. ACT 112: Negative or not required by law. The above report was generated using voice recognition software. It may contain grammatical, syntax or spelling errors. Electronically signed by: Cuco Belle M.D. 05/06/2022 1:02 PM Dictated:05/06/22 1301 Transcribed: 05/06/22 1301 Hospital Course (1) Chest pain: Present on admission with chest pain need to r/o ACS Troponin elevated on admission 2290.7, then peaked to 3384.9, now trending down EKG shows diffuse ST abnormalities which would be consistent with early repolarization. cardiology on board Stress test done today negative Case discussed with cardiology and ok to discharge home today from cardiology s tanoint Follow up with cardiology outpatient Pt was advised if pain reoccurs to seek medical attention (2) Elevated troponin I level: (3) Alcohol use: Counseling on alcohol cessation (4) Marijuana use: (5) Tobacco use disorder: Counseling on tobacco and Marijuana cessation Code status FULL code Total Time Total Time Spent Total Time Spent (In Minutes): 35 minutes Discharge Plan Discharge Items Patient Disposition: Home - Self-Care Reason For Visit: SOB, CHEST HEAVINESS Discharge Diagnosis: (1) Chest pain: (2) Elevated troponin I level: (3) Tobacco use disorder: (4) Marijuana use: Activity: Resume your previous activity Non-emergency contact: Primary Care Provider and Estate Planner Call non-emergency contact if: you have any medication questions Follow-up/Referrals: Adrian Clancy DO [Estate Planner] - (Date & Time 05/21/2022 10:00 AM Provider Adrian Clancy DO Department Cardiology, [facility] ) Jono Addison DO [Outside Practitioners] - (Date & Time 05/13/2022 11:20 AM Provider Jono Addison DO Department [facility] ) Diet: Regular Addtl Attending Provider Instructions: Follow up with your primary care provider 05/13/2022 11:20 AM Provider Jono Addison DO [facility] Follow up with cardiology dr. Clancy 05/21/2022 10:00 AM Provider Cardiology, [facility] Seek medical attention if your symptoms reoccurs counseling on tobacco and marijuana cessation Pending Studies at Discharge: No Stand-Alone Forms: [facility], Smoking Cessation Medications and DC Order Discharge Orders: Discharge Order (Routine); Ordered 05/07/22 Ordered By: Mi Parker Admission Data Admit Date/Time: 05/06/22 14:30 Attending Provider: Mi Parker Admit Provider: Naima Spaulding Primary Care Provider: PCP,NO Other Providers: Naima Spaulding ; Den Vides Other Interventions: Discharge Summary Assessment (RN) Last Done: 05/07/22 13:45
--- NOTE | 2022-05-07 17:34 | Electrocardiogram Report ---
Test Reason : Blood Pressure : / mmHG Vent. Rate : 069 BPM Atrial Rate : 069 BPM P-R Int : 156 ms QRS Dur : 088 ms QT Int : 398 ms P-R-T Axes : 046 077 056 degrees QTc Int : 426 ms Normal sinus rhythm Early repolarization Normal ECG No previous ECGs available Confirmed by Tomás Haq ([id number]) on 05/07/2022 5:33:38 PM Referred By: REFERRED SELF Confirmed By:Regan Haq
--- NOTE | 2022-05-07 17:34 | Electrocardiogram Report ---
Test Reason : Blood Pressure : / mmHG Vent. Rate : 068 BPM Atrial Rate : 068 BPM P-R Int : 158 ms QRS Dur : 090 ms QT Int : 402 ms P-R-T Axes : 025 081 049 degrees QTc Int : 427 ms Normal sinus rhythm with sinus arrhythmia Early repolarization Normal ECG When compared with ECG of 06-MAY-2022 11:42, (unconfirmed) No significant change was found Confirmed by Tomás Haq ([id number]) on 05/07/2022 5:33:54 PM Referred By: REFERRED SELF Confirmed By:Regan Haq
--- NOTE | 2022-05-08 06:27 | Electrocardiogram Report ---
Test Reason : Blood Pressure : / mmHG Vent. Rate : 065 BPM Atrial Rate : 065 BPM P-R Int : 160 ms QRS Dur : 084 ms QT Int : 424 ms P-R-T Axes : 039 081 061 degrees QTc Int : 440 ms Normal sinus rhythm with sinus arrhythmia ST elevation, consider early repolarization When compared with ECG of 06-MAY-2022 12:39, No significant change was found Confirmed by Maurice Batres ([id number]) on 05/08/2022 6:27:24 AM Referred By: REFERRED SELF Confirmed By:Maurice Batres
[2022-05-08 20:37] LABS: Marijuana Quant, GCMS Urine 70 ng/mL (<5)
== END 2022-05-07 15:06 | disposition home or self-care (01) | DRG 896 ==
LOC: ED 11:23 → 2S 14:30 → SUATTDRO 14:30 → 2S 15:36